=== PATIENT | female | born 1970 | race Caucasian/White ===

== ENCOUNTER 2021-04-02 13:57 | Observation (INO) | payer OTHER ==
[~2021-04-02] VITALS: Ht 165.1 cm; Wt 77.1 kg
--- NOTE | ~2021-04-02 | HC ---
[facility] [place] [address] CONSULTATION Name: KATI FABIAN Room #: 215-P ADM IN M.R.#: [id number] Admission: 04/02/21 Attend Phys: Srikanth Paredes MD Discharge: Date of : 72 Report #: [id number] THIS REPORT FOR: cc: Enoc Kennedy MD, Patrick MD Khosla,Richard Cruz MD ~ DOC #: [id number] Richard Mendez MD DATE OF SERVICE: 04/02/2021 HISTORY OF PRESENT ILLNESS: This is a 50-year-old female patient who was evaluated by me for pretty unusual symptoms. She said she had some headaches, some visual disturbances, some speech difficulties, some dizziness. She had told the emergency room that she also had numbness in the legs, but she did not give me that history. She came outside the window for TPA and she was evaluated by emergency room physician. REVIEW OF SYSTEMS: Positive for pretty pronounced psychiatric history. She has anxiety. She has depression. She said she had ECT in the past. She ____ she does not believe that she is under too much stress, but today she feels anxious because she has not taken her anxiety medication. She does have a history of diabetes and anxiety. Rest of the 14 point review of system was mostly noncontributory. PAST MEDICAL HISTORY: Positive for pretty pronounced psychiatric history. FAMILY HISTORY: Unremarkable. SOCIAL HISTORY: The patient has a son who was there. She has a history of smoking. PHYSICAL EXAMINATION: GENERAL: Indicate to me she is alert. She is responsive. She says her symptoms are mostly resolved now. She thinks her speech is back to baseline. Numbness was gone even before in the legs. Cranial nerve and neuromuscular examination is mostly noncontributory. I did not make a walk, but we will ask physical therapy to do that. That consult is already in the chart. CARDIORESPIRATORY: Unremarkable. VITAL SIGNS: Blood pressure is 157/106, respirations 18, pulse 68, temperature 97.9. This patient had a CT angiography before seeing me and that was basically unremarkable. IMPRESSION AND PLAN: This patient's symptoms are pretty unusual and it is difficult to prompt any anatomical distribution. We will await the MRI in this [address] [address] CONSULTATION Name: KATI FABIAN Room #: 215-P ADM IN M.R.#: [id number] Admission: 04/02/21 Attend Phys: Srikanth Paredes MD Discharge: Date of : 72 Report #: [id number] patient. If MRI demonstrate a stroke, then we will follow accordingly. If that does not indicate stroke, then the other etiology needs to be considered including migraine, but she has no prior history of migraine. Anxiety can cause the same kind of symptoms and again, there is no good cause for the numbness she had in the legs either and that may also have to be addressed depending upon the MRI results. Dr. Marrero will follow up this patient with you from tomorrow. Thank you very much for this referral. MD GUSTAVO Hernandez/CAROL/YANELIS By: [id number] Richard Mendez MD /nt
[~2021-04-02 13:57] MED LIST: BUSPAR30 MG; CLONAZEPAM 1 MG1 M1; ESKALITH300 MG; GLUCOPHAGE1000 MG; HYDROCODON-ACE1 EAC5; LAMICTAL XR200 MG; LEXAPRO20 MG PO; METFORMIN HCL500 MG PO; NAPROSYN500 MG; NEURONTIN 300300 M1; NEURONTIN 300300 M1 PO; NORCO 10-325 T1 EACH PO; NORCO 5-325 TA1 EACH PO; PROPRANOLOL 1010 M1; PROVERA10 MG; SIMVASTATIN40 MG; SINGULAIR 10 MG10 M1 PO; SYNTHROID100 MCG; TRAMADOL 50 MG50 MG PO; TRAZODONE HCL100 MG PO; TRULICITY1.5 MG/0.5 SQ; XANAX1 MG PO
[2021-04-02 14:06] VITALS: BP 164/115
[2021-04-02 14:49] LABS: ABSOLUTE NEUTROPHILS 6.2 thou/uL (1.4-8.2); BASOPHILS 0.7 % (0.0-2.0); EOSINOPHILS 0.9 % (0.0-3.0); HEMATOCRIT 40.1 % (37.0-47.0); HEMOGLOBIN 13.5 gm/dL (12.0-15.0); LYMPHOCYTES 22.6 % (24.0-44.0); MCH 31.7 pg (26.0-34.0); MCHC 33.8 g/dL (28.0-37.0); MCV 93.8 fL (80.0-100.0); MONOCYTES 7.3 % (1.0-8.0); PLATELET COUNT 222 thou/uL (150-400); POLYS 68.5 % (36.0-66.0); RBC 4.28 mil/uL (4.20-5.00); RDW 13.6 % (10.5-14.5)
[2021-04-02 14:55] LABS: ANION GAP 6 mmol/L (7-16); BUN 7 mg/dL (7-18); CHLORIDE 100 mmol/L (98-107); CO2 28 mmol/L (21-32); GLUCOSE 115 mg/dL (74-106); SODIUM 134 mmol/L (136-145)
[2021-04-02 15:06] LABS: ALBUMIN 3.6 g/dL (3.4-5.0); SGOT 12 U/L (15-37); SGPT 14 U/L (14-59); TOTAL BILIRUBIN 0.3 mg/dL (0.2-1.0); TOTAL PROTEIN 6.7 g/dL (6.4-8.2); TROPONIN-I <0.06 ng/mL (<0.06)
[2021-04-02 15:10] LABS: APTT 26.2 Seconds (24.5-32.8); INR 1.01
[2021-04-02 16:00] LABS: URINE BILIRUBIN NEGATIVE (Negative); URINE BLOOD NEGATIVE (Negative); URINE CLARITY CLEAR; URINE COLOR YELLOW; URINE GLUCOSE-RANDOM* NEGATIVE (Negative); URINE KETONES NEGATIVE (Negative); URINE LEUKOCYTES-REFLEX NEGATIVE (Negative); URINE NITRITE-REFLEX NEGATIVE (Negative); URINE PROTEIN (DIPSTICK) NEGATIVE (Negative); URINE SPECIFIC GRAVITY <= 1.005 (1.005-1.035); URINE UROBILINOGEN 0.2 E.U./dl (0.2-1.0)
[2021-04-02] MEDS ORDERED: LORATIDINE 10 M10 M1 PO (16:08)
[2021-04-02] MEDS ORDERED: BUSPIRONE HCL15 MG PO (16:10)
[2021-04-02] MEDS ORDERED: ABILIFY 5 MG TAB5 MG PO (16:11)
[2021-04-02 16:14] LABS: AMP/METHAMP Negative (Negative); BARBITURATES Negative (Negative); BENZODIAZEPINES POSITIVE (Negative); COCAINE Negative (Negative); METHADONE Negative (Negative); OPIATES Negative (Negative); PCP Negative (Negative)
[2021-04-02 16:20] VITALS: BP 184/105
[2021-04-02 16:51] VITALS: BP 186/107
--- NOTE | 2021-04-02 17:54 | NUR ---
PT TX TO CCU APPROX 1700. NIH-O. PT RESTING COMFORTABLY WITH FAMILY AT BEDSIDE. PT AFEBRILE, ADEQUATE UOP, NO BM, APPROPRIATE APPETITE. PT AND FAMILY HAVE BEEN THOUROUGHLY UPDATED AND EDUCATED ON PT CONDITION AND POC. PT SLOWLY PROGRESSING TOWARDS POC.
[2021-04-02 17:55] VITALS: BP 157/106
[2021-04-02 19:26] VITALS: BP 142/95
[2021-04-03 00:14] VITALS: BP 129/91
[2021-04-03 03:47] VITALS: BP 129/88
--- NOTE | 2021-04-03 07:05 | EKG ---
[address] [place] [address] ELECTROCARDIOGRAM REPORT Name: KATI FABIAN Room #: 215-P ADM IN M.R.#: [id number] Admission: 04/02/21 Attend Phys: Srikanth Paredes MD Discharge: Date of : 72 Report #: [id number] [facility] ED Test Date: 2021-04-02 Test Time: 14:52:29 Pat Name: KATI FABIAN Department: Room: 215 Gender: F Apartment Manager: emelina : 1970 Requested By: Scot Varela Order Number: [id number] MD: Enoc Puente Measurements Intervals [place] Rate: 73 P: 83 WI: 156 QRS: 58 QRSD: 97 T: 10 QT: 389 QTc: 429 Interpretive Statements Sinus rhythm Compared to ECG 12/16/2012 14:11:37 No significant changes Electronically Signed On 04-03-2021 7:05:19 CDT by Enoc Puente [email or web address] <ELECTRONICALLY SIGNED> By: Enoc Puente MD, [facility] 04/03/21 0705 1452 1452 Enoc Puente MD, FACC /EPI
[2021-04-03 08:55] VITALS: BP 144/99
[2021-04-03 11:10] VITALS: BP 144/99
--- NOTE | 2021-04-03 11:13 | NUR ---
ASSUMED CARE SHIFT CHANGE. ASSESSMENT CHARTED.MEDS GIVNE. VSS. DENIES PAIN. C/O ANXIETY- MEDS GIVEN PER ORDERS. PT UP WITH PHYS THERAPY AND OT, PHIL WELL. INDEPENDENT. DC ORDERS. DISCUSSED WITH PT. PAPERWORK REVIEWED, COMMUNICATES UNDERSTANDING. TELE REMOVE. IV REMOVE. PT TO LEAVE WITH ALL BELONINGS.
== END 2021-04-03 13:02 | disposition home or self-care (01) ==
LOC: ER 13:57 → 2N 16:18 → EROBS 16:18 → 2N 16:18
PROVIDERS: Emergency Medicine; ADMIT Hospitalist; ATTEND Hospitalist
DX: I63.9 Cerebral infarction, unspecified (principal); R53.1 Weakness; R20.0 Anesthesia of skin; R42 Dizziness and giddiness; E11.9 Type 2 diabetes mellitus without complications; F32.9 Major depressive disorder, single episode, unspecified; F41.9 Anxiety disorder, unspecified; G89.29 Other chronic pain; E03.9 Hypothyroidism, unspecified; F17.210 Nicotine dependence, cigarettes, uncomplicated; Z79.899 Other long term (current) drug therapy
CPT/HCPCS: 10081